=== PATIENT | female | born 1975 | race Caucasian/White ===

== ENCOUNTER 2017-08-30 15:36 | Emergency (ER) | payer BC ==
[~2017-08-30] VITALS: Ht 162.6 cm; Wt 64.2 kg
[2017-08-30 15:55] VITALS: BP 117/79
[2017-08-30] MEDS ORDERED: IBUPROFEN 200 MG TABLET ONE (16:30)
[2017-08-30] MEDS ORDERED: HYDROcodone/APAP 5/325 TABLET PO PRN (16:30)
[2017-08-30] MEDS ORDERED: HYDROcodone/APAP 5/325 TABLET ONE (16:30)
[2017-08-30] MEDS ORDERED: IBUPROFEN 200 MG TABLET PO ONE (16:30)
== END 2017-08-30 18:09 | disposition home or self-care (01) ==
LOC: ED 18:03
DX: S83.511A Sprain of anterior cruciate ligament of right knee, initial encounter (principal); X58.XXXA Exposure to other specified factors, initial encounter; Y93.89 Activity, other specified; Y92.89 Other specified places as the place of occurrence of the external cause; Y99.9 Unspecified external cause status
CPT/HCPCS: 29505; 99284